=== PATIENT | male | born 1955 | race Caucasian/White ===

== ENCOUNTER 2018-03-14 17:07 | Emergency (ER) | payer OTHER ==
[~2018-03-14] VITALS: Ht 182.9 cm; Wt 107.5 kg
[2018-03-14 17:10] VITALS: BP 121/85
--- NOTE | 2018-03-14 17:35 | NUR ---
FLOAT RN: JERAD LEPE AT BEDSIDE TO REDUCE FINGER
== END 2018-03-14 18:14 | disposition home or self-care (01) ==
LOC: ED 17:55
DX: S63.284A Dislocation of proximal interphalangeal joint of right ring finger, initial encounter (principal); I10 Essential (primary) hypertension; Z90.49 Acquired absence of other specified parts of digestive tract; W19.XXXA Unspecified fall, initial encounter; Y93.89 Activity, other specified; Y92.410 Unspecified street and highway as the place of occurrence of the external cause; Y99.8 Other external cause status
CPT/HCPCS: 26770; 29130; 99283; 99284